=== PATIENT | male | born 1955 | race African-American/Black ===

== ENCOUNTER 2017-08-30 23:11 | Emergency (ER) | payer MEDICAID ==
[~2017-08-30] VITALS: Ht 188 cm; Wt 80.0 kg
[2017-08-31 02:00] VITALS: BP 132/68
== END 2017-08-31 03:14 | disposition home or self-care (01) ==
LOC: ER 23:11
DX: F10.129 Alcohol abuse with intoxication, unspecified (principal); Y90.9 Presence of alcohol in blood, level not specified
CPT/HCPCS: 99283; C1893

== ENCOUNTER 2022-02-28 21:57 | Emergency (ER) | payer MEDICARE, MEDICAID ==
[~2022-02-28] VITALS: Ht 175.3 cm; Wt 92.0 kg
[2022-02-28 23:02] VITALS: BP 146/96
[2022-03-01] MEDS ORDERED: IBUPROFEN 600MG TABLET PO ONE (00:30)
[2022-03-01] MEDS: CLINDAMYCIN HCL 150MG CAPSULE PO SCH ×3 (01:22→01:58)
[2022-03-01] MEDS ORDERED: HYDROCODONE/ACETAMINOPHEN 5/325MG TABLET PO ONE (02:15)
[2022-03-01] MEDS ORDERED: CLIN-116 MT (04:14)
== END 2022-03-01 04:18 | disposition home or self-care (01) ==
LOC: ER 21:57
DX: L03.116 Cellulitis of left lower limb (principal)
CPT/HCPCS: 73610; 73630; 99284